=== PATIENT | female | born 1960 | race Caucasian/White ===

== ENCOUNTER → 2023-07-07 11:31 | Outpatient (CLI) | payer MEDICARE, SELFPAY ==
--- NOTE | 2023-07-07 11:44 | XR_ITS ---
FINAL REPORT CLINICAL HISTORY: RT SHOULDER PAIN FINDINGS: 3 views of the right shoulder were obtained. There is no acute fracture or dislocation. The joint spaces are intact. There are no soft tissue abnormalities. IMPRESSION: No acute process. Reviewed, Interpreted and Dictated by Claude Rivera MD Transcribed by Jer Fontaine Authenticated and [facility]
== END ==
LOC: RAD 11:39
PROVIDERS: PCP Nurse Practitioner Family; Visit Provider Nurse Practitioner Family
DX: M25.511 Pain in right shoulder (principal)
CPT/HCPCS: 73030

== ENCOUNTER 2023-07-30 13:10 | Outpatient (RCR) | payer MEDICARE, SELFPAY ==
--- NOTE | 2023-07-30 14:28 | HMH.OTOPEV ---
OT Inpatient Evaluation Rehab OT Outpatient Eval Start: 07/30/23 14:15 Freq: Status: Active Protocol: Document 07/30/23 14:15 RMARSCHANTALE (Rec: 07/30/23 14:28 [id number] E-signed By Alba Alvarez, OT Outpatient Therapy Subjective History Subjective History Pt is a 62 year old female who reports to therapy for initial evaluation to right shoulder. Pt in early June, when she was pushing herself up from her chair using right arm. Pt explains she felt/heard a pop in shoulder and pain immediately followed. Since this accident, pt has continued to have pain, decreased AROM, and strength at right shoulder. Pt is right hand dominant. Pt reports difficulty with daily tasks such as dressing/bathing and heavier house hold chores . Pt will continue to be seen weekly in order to address all right shoulder deficits. Short term goals: 1. Pt will increase R shoulder flexion to 120 degrees in order to complete daily overhead tasks independently ~50% of the time . 2. Pt will increase R shoulder abduction to 120 degrees to complete upper body dressing independently ~50% of the time. 3. Pt will increase R shoulder ER/IR to 60 degrees ( ER) and 45 degrees (IR) in order to complete lower body dressing (putting on and taking off belt) independently ~50% of the time. 4. Pt will increase strength to 3+/5 throughout right shoulder in order to complete heavier household tasks ( laundry, mopping, vacuuming) independently ~50% of the time . 5. Pt will verbalize decreased pain levels at worst in R shoulder to a 5/10 in order to complete daily ADLs independently ~50% of the time . 6. Pt will demonstrate improved endurance by completing Right shoulder exercises for ~20 minutes prior to rest break in order to increase his tolerance for daily work activities. 7. Pt will demonstrate independence with HEP of AAROM exercises to increase overall functional use of right shoulder in daily activities ~ 75% of the time. alf goals: 1. Pt will increase R shoulder flexion to 130 degrees in order to complete daily overhead tasks independently ~75% of the time . 2. Pt will increase R shoulder abduction to 130 degrees to complete upper body dressing independently ~75% of the time. 3. Pt will increase R shoulder ER/IR to 70 degrees ( ER) and 60 degrees (IR)in order to complete lower body dressing (putting on and taking off belt) independently ~75% of the time. 4. Pt will increase strength to 4-/5 throughout right shoulder in order to complete heavier household tasks ( laundry, mopping, vacuuming) independently ~75% of the time . 5. Pt will verbalize decreased pain levels at worst in R shoulder to a 3/10 in order to complete daily ADLs independently ~75% of the time . 6. Pt will demonstrate improved endurance by completing R shoulder exercises for ~30 minutes prior to rest break in order to increase his tolerance for daily work activities. 7. Pt will demonstrate independence with HEP of Rotator cuff strengthening exercises to increase overall functional use of R shoulder for daily activities ~90% of the time. New diagnosis of cancer in past 12 No months? Chief Complaint Pain,Stiff,Weakness Symptom Type Ache,Throb,Sharp,Dull Symptoms Relieved By Rest/Positioning Symptoms Aggravated By Physical Activity,Lifting Prior Functional Limitations None Current Functional Limitations Reaching,Lifting,Housework, Dressing,Driving,Sleeping, Recreation Activity Symptom Description Intermittent,Activity Dependent Level of pain today (0-10) 4 Pain scale - at its best (0-10) 0 Pain scale - at its worst (0-10) 8 Shoulder/Elbow Eval Shoulder Objective Measurements Shoulder ROM Right Shoulder Abduction Active Range of 96 degrees Motion (degrees) Shoulder Flexion Active Range of Motion 90 degrees (degrees) Query Text: Shoulder External Rotation Active Range 55 degrees of Motion (degrees) Shoulder Internal Rotation Active Range 20 degrees of Motion (degrees) Shoulder MMT Shoulder Abduction Strength Grade 3 Fair Shoulder Flexion Strength Grade 3 Fair Shoulder External Rotation Strength 3 Fair Grade Shoulder Internal Rotation Strength 3 Fair Grade Shoulder Strength Patient Testing Sitting Position Elbow Objective Measurements QuickDASH Activities Please rate your ability to do the following activities in the last week by selecting the number below the appropriate response. 1. Open a tight or new jar. Mild difficulty 2. Do heavy instructional resource teacher (e.g., wash Unable painting, floors). 3. Carry a shopping bag or briefcase. Mild difficulty 4. Wash your back. Mild difficulty 5. Use a knife to cut food. Severe difficulty 6. Recreational activities in which you No difficulty take some force or impact through your arm, shoulder, or hand (e.g., golf, hammering, tennis, etc.). 7. During the past week, to what extent Moderately has your arm, shoulder or hand problem interfered with your normal social activities with family, friends, neighbors or groups? 8. During the past week, were you Very limited limited in your work or other regular daily activites as a result of your arm, shoulder or hand problem? 9. Arm, shoulder or hand pain. Severe 10. Tingling (pins and needles) in your Mild arm, shoulder or hand. 11. During the past week, how much Severe difficulty difficulty have you had sleeping because of the pain in your arm, shoulder or hand? Quick DASH 33 OT Outpatient Assessment Impairments Problems/Impairments Palpation Tenderness,Impaired Range of Motion,Impaired Strength,Impaired Endurance, Impaired Lifting,Impaired Dressing,Impaired Shower/ Bathing,Impaired Household Care,Impaired Recreational Activities,Subjective C/O Pain Prognosis Rehab Potential Good Clinical Impression Consistent with Diagnosis Yes Short Term Goals Number of Weeks 3 See history for details Improve Quick Dash Score Yes: 30 or below Skilled Nursing Goals Number of Weeks 6 see history for details Improve Quick Dash Score Yes: 25 or below Outpatient Therapy Plan of Care Treatment Plan May Include Therapeutic Exercise Including Home Yes Exercise Program Manual Therapy Techniques Yes Neuromuscular Re-education Yes ADL/Self Care Education Yes Dry Needling Yes Thermal Modalities Yes Electrical Stimulation Yes Ultrasound/Phonophoresis Yes Iontophoresis Yes Parrafin Yes Orthotics/Bracing/Splinting Yes Massage Yes Eval/Re-Eval Yes Frequency Times per week 2 Duration Number of Weeks 6 Addendums This patient is a candidate for social No or vocational rehab? Patient/Guardian verbally acknowledges Yes understanding of treatment program and consents to further treatment? Patient/Guardian verbally acknowledges Yes understanding of diagnosis, prognosis and goals for treatment? Eval Complexity OT Charge 93351 - Moderate Complexity PHYSICIAN CERTIFICATION: I certify the specified therapy services for Melissa Dillard are required, authorized, and reviewed every 30 days.
== END 2023-07-30 14:40 | disposition home or self-care (01) ==
LOC: OT 13:10
PROVIDERS: Visit Provider Nurse Practitioner Family
DX: M25.511 Pain in right shoulder (principal)
CPT/HCPCS: 97166

== ENCOUNTER 2023-10-01 09:54 | Day surgery (SDC) | payer MEDICARE, SELFPAY ==
[2023-10-01 10:09] VITALS: BP 149/98; PULSE 68; RESP 18; TEMP 36.1; O2SAT 97; BMI 37.0
[2023-10-01] MEDS: LACTATED RINGERS 1000ML 1,000 ML 25 ML IV (10:24)
[2023-10-01 10:59] VITALS: O2SAT 97
--- NOTE | 2023-10-01 11:09 | P.PNANES_ITS ---
[facility] Disclaimer: The information contained in this section may have been updated after the patient was seen, as this information can be updated by other users. Medical History (Updated 10/01/23 @ 10:14 by Cheryl Persaud RN) Sleep apnea Sinus headache Anxiety and depression Thyroid disease Cancer of kidney Kidney malignant neoplasm Breast cancer Aortic aneurysm Surgical History History of tubal ligation History of mastectomy Hx of hernia repair History of hysterectomy History of cholecystectomy History of section History of appendectomy Family History (Updated 10/01/23 @ 10:14 by Cheryl Persaud RN) Other Family history of cancer Heart disease Hypertension Social History (Updated 10/01/23 @ 10:15 by Cheryl Persaud RN) Smoking Status: Current every day smoker alcohol intake: current substance use type: marijuana current occupational status: disabled Travel in the last 8 weeks: None caffeine: Yes [facility] Anesthesia Checklist Patient Identification Patient Identification: Verbal (Name & ) Structural Data Admitted From: Home Planned Operative Procedure/s: colonoscopy Consent for Planned Operative Procedure(s) Verified: Yes Airway Assessment Mallampati Score:: Class II C-Spine Mobility Assessed: Yes Dentition: Good Dentition Neurological Assessment Level of Consciousness: Awake, Alert and Appropriate Anesthesia Plan Anesthesia Risk discussed: Yes Anesthesia Plan: Verified ASA Class: III Anesthesia Type: MAC
--- NOTE | 2023-10-01 11:28 | HMH.SCOPE ---
Procedure: Date: 10/01/23 Patient Date of :: 1960 Procedure Performed:: Colonoscopy & polypectomy Indications:: Personal history of polyps Performing Provider:: Chuy Santamaria MD Referring Provider:: Christina Lopes APRN Sedation:: Propofol Procedure:: After placing the patient in the left lateral decubitus position, the colonoscopy was gently inserted into the rectum and under direct visualization advanced to the cecum which was identified by transillumination in the right lower quadrant, identification of the ileocecal valve, appendiceal orifice, and cecal strap. Color, texture, mucosa, and anatomy of the colon were carefully examined with the scope. Findings:: Anal canal: normal Rectum: normal Sigmoid colon: normal without polyps or inflammatory changes, marked diverticulosis with fixation and looping Descending colon: normal without polyps or inflammatory changes Splenic flexure: normal Transverse colon: normal, 0.5 cm polyps x 2 identified and removed with snare Hepatic flexure: normal Ascending colon: normal without polyps or inflammatory changes Cecum: normal, 0.5 cm adenomatous polyp identified and removed with snare Terminal ileum: not visualized Prep quality-Fair with much liquid residuals Impression: Transverse colon polyps x 2 Cecal polyp x 1 Sigmoid diverticulosis Specimens:: Colon polyps Recommendations:: Follow up examination in about THREE years or so, sooner if clinically indicated in view of findings of polyps. Complications:: None Estimated blood obtained (mL): 0 Colonoscopy Component Colonoscopy Component Was a colonoscopy performed during today's procedure?: Yes Recommended follow up colonoscopy of at least 10 years?: No If no, follow up colonoscopy recommended in ___ years?: THREE Reason for not recommending >/= 10 yr follow-up interval?: Polyps
[2023-10-01 11:30] VITALS: BP 104/49; PULSE 62; RESP 14; TEMP 36.3; O2SAT 92
[2023-10-01 11:40] VITALS: BP 120/61; PULSE 74; RESP 20; O2SAT 95
[2023-10-01 11:50] VITALS: BP 153/55; PULSE 72; RESP 18; O2SAT 93
[2023-10-01 12:00] VITALS: BP 148/74; PULSE 59; RESP 18; O2SAT 98
== END 2023-10-01 12:15 | disposition home or self-care (01) ==
PROVIDERS: PCP Nurse Practitioner Family; Visit Provider Internal Medicine Gastroenterology
PROC: (CPT 45385; principal; 2023-10-01 11:00)
DX: Z12.11 Encounter for screening for malignant neoplasm of colon (principal); Z86.010 Personal history of colon polyps; K57.30 Diverticulosis of large intestine without perforation or abscess without bleeding; D12.3 Benign neoplasm of transverse colon
CPT/HCPCS: 45385; 88305; J2704